=== PATIENT | male | born 1980 | race Caucasian/White ===

== ENCOUNTER 2016-03-10 12:04 | Emergency (ER) | payer SELFPAY ==
[~2016-03-10] VITALS: Ht 177.8 cm; Wt 85.1 kg
[2016-03-10 12:24] VITALS: BP 139/92; PULSE 93; RESP 16; TEMP 98; O2SAT 100
[2016-03-10] MEDS ORDERED: TETANUS/DIPHTHERIA TOXOID ADULT 0.5 ML VIAL IM ONE (14:00)
[2016-03-10] MEDS ORDERED: LIDOCAINE 1%/EPINEPHrine 1:100,000 SOLN 20 ML VIAL INFIL ONE (14:00)
--- NOTE | 2016-03-10 14:09 | PD ---
HPI Chief Complaint: Fall Time Seen by Provider: 14:02 Travel History International Travel<30 days: No Contact w/Intl Traveler<30days: No Traveled to known affect area: No History of Present Illness HPI 35 year-old male presents to the emergency room for evaluation of head wound that occurred earlier today. Patient states he tripped coming on the stairs and fell down the last 4 stairs striking his head on the edge of the step. He denies loss of consciousness, severe headache, nausea, vomiting, retrograde amnesia, confusion, and visual changes. He is not taking blood thinners. Denies neck or back pain. Denies any pain. States he would not have come but the wound on his head would not stop bleeding. Unknown last tetanus. PFSH Past Medical History Medical History: Denies Significant Hx Diminished Hearing: No Tetanus Vaccination: > 5 Years Influenza Vaccination: No ?: Not Past Surgical History Surgical History: No Previous Surgery Social History Alcohol Use: Yes Tobacco Use: Yes (02/19 ppd) Substance Use: No Allergies-Medications (Allergen,Severity, Reaction): Coded Allergies: No Known Allergies (Unverified , 03/10/16) Review of Systems Except as stated in HPI: all other systems reviewed are Neg Physical Exam Narrative GENERAL: Well-nourished, well-developed male in no acute distress. Afebrile. Ambulatory. SKIN: Warm and dry. There is a 1 cm laceration to the left lateral scalp. Bleeding is moderate. HEAD: Normocephalic. No rey sign or raccoon eyes. EYES: No scleral icterus. No injection or drainage. NECK: Supple, trachea midline. No JVD or lymphadenopathy. Full range of motion. No midline tenderness. CARDIOVASCULAR: Regular rate and rhythm without murmurs, gallops, or rubs. RESPIRATORY: Breath sounds equal bilaterally. No accessory muscle use. BACK: Nontender without obvious deformity. No CVA tenderness. Data Data Last Documented VS Vital Signs Date Time Temp Pulse Resp B/P Pulse Ox O2 Delivery O2 Flow Rate FiO2 03/10/16 12:24 98.0 93 16 139/92 100 Orders Tetanus/Diphtheria Tox Adult (Tetanus/Di (03/10/16 14:00) Lidocai-Epi 1%-1:100,000 Inj (Xylocaine- (03/10/16 14:15) MDM Medical Decision Making Medical Screen Exam Complete: Yes Emergency Medical Condition: Yes Medical Record Reviewed: Yes Differential Diagnosis Laceration versus abrasion versus contusion versus hematoma Narrative Course 35-year-old male presents to the emergency room for evaluation of left-sided scalp laceration after falling down 4 stairs just prior to arrival. No loss of consciousness. Patient denies any other complaints and states he would not have come but he could not get the bleeding to stop. He is not on blood thinners. Physical exam is reassuring. No focal neurological deficits. No midline tenderness of the cervical spine. Patient is ambulatory without difficulties. [place] CT head and C-spine rules exclude need for imaging of either at this time. Laceration was repaired, so procedure note for details. Patient charged with care instructions and told to follow up with a primary care physician and return for worsening symptoms. He understands and agrees to this plan. Procedures Procedure Narrative LACERATION LOCATION: Left scalp LENGTH: 1.5 cm NUMBER OF STITCHES/ANT: 3 ant. REPAIR: The area of the laceration was prepped with Betadine and sterilely draped. The laceration was infiltrated with 1% lidocaine with epinephrine. The wound was copiously irrigated and explored without evidence of foreign body , tendon injury or neurovascular injury. The wound was closed using staple gun. This was a single layer repair. A sterile dressing was applied. The patient was advised to keep the dressing clean and dry. Patient tolerated the procedure well. Diagnosis Primary Impression: Laceration of head Qualified Code: S01.01XA - Laceration of scalp without foreign body, initial encounter Referrals: Primary Care Physician Patient Instructions: General Instructions, Laceration (ED) Additional Instructions: Rest and drink plenty of fluids. Keep wound clean and dry. Apply triple antibiotic ointment daily. Return in 7 days to have ant removed. Follow-up with a primary care physician. Return to the emergency room for worsening symptoms. Disposition: 01 DISCHARGE HOME Condition: Stable [place] August Mar 10, 2016 14:09
[2016-03-10] MEDS ORDERED: LIDOCAINE 1%/EPINEPHrine 1:100,000 SOLN 30 ML VIAL INFIL ONE (14:15)
== END 2016-03-10 14:54 | disposition home or self-care (01) ==
LOC: PHED 12:04 → PHEFT 14:54
DX: S01.01XA Laceration without foreign body of scalp, initial encounter (principal); F17.210 Nicotine dependence, cigarettes, uncomplicated; Z23 Encounter for immunization; W10.9XXA Fall (on) (from) unspecified stairs and steps, initial encounter; Y93.9 Activity, unspecified; Y92.9 Unspecified place or not applicable
CPT/HCPCS: 12001; 90471; 90714